=== PATIENT | male | born 1955 | race Two or more races ===

== ENCOUNTER 2022-03-21 10:26 | Outpatient (CLI) | payer MEDICARE, OTHER | END 2022-03-21 23:59 | disposition home or self-care (01) | LOC: MSC 10:26 | PROVIDERS: ATTEND Anesthesiology | DX: G89.3 Neoplasm related pain (acute) (chronic) (principal); C22.0 Liver cell carcinoma; C79.51 Secondary malignant neoplasm of bone; F11.20 Opioid dependence, uncomplicated; I48.91 Unspecified atrial fibrillation; Z79.01 Long term (current) use of anticoagulants; Z79.899 Other long term (current) drug therapy ==